=== PATIENT | male | born 1935 | race Caucasian/White ===

== ENCOUNTER → 2017-03-15 | Outpatient (CLI) | payer MEDICARE ==
[~2017-03-15] MED LIST: ADVAIR 250-501 EAC1 INH; ASPIRIN81 MG PO; CARTIA XT120 MG PO; FERRO-TIME325 MG PO; LEXAPRO5 MG PO; LOPRESSOR PO; LOVENOX SUBQ; NORCO 5/325 TAB1 TAB PO; SPIRIVA18 MCG INH
--- NOTE | ~2017-03-15 | US136 ---
[facility] A Service of [facility] & [facility] RADIOLOGY TEXT RESULTS PATIENT: JAY GROSS LOCATION: CNIV : 33 UNIT #: [id number] AGE: [address]: CHADWICK MAURO MD SEX: M ORDER DR: [id number] [facility] [address] [place], [place] [address] [id number] O MR#: [id number] Acc #: [id number] NAME: JAY GROSS : 1935 SEX: M STUDY DATE/TIME: 03/15/2017 10:50 UNIT: CNIV ROOM: STUDY DESCRIPTION: U/L Ext Art Study Ltd Bil Attending Physician: Chadwick Mauro M.D. Referring Physician: Chadwick Mauro M.D. Ordering Physician: Chadwick Mauro M.D. Primary Care Physician: Chadwick Mauro M.D. MEDICAL IMAGING REPORT This report is preliminary unless electronic signature is present EXAM Bilateral ankle to brachial indices 03/15/2017 HISTORY Claudication bilaterally as well as numbness and tingling in both feet for 3 months. TECHNIQUE Sequential pressures were obtained through both lower extremities and pulse volume recordings were generated. FINDINGS The patient's ankle to brachial indices are markedly abnormal bilaterally measuring 0.52 at the dorsalis pedis artery on the right and 0.68 at the posterior tibial artery on the right. The ankle to brachial index at the posterior tibial artery on the left is 0.64 and at the dorsalis pedis artery on the left is 0.53. Toe to brachial indices are also markedly diminished at 0.25 on the right and 0.36 on the left. IMPRESSION 1. The patient's ankle to brachial indices are markedly diminished bilaterally. This is certainly indicative multiple levels of arterial disease and certainly would be within claudication range. Further evaluation with CT angiography of the abdomen and pelvis with bilateral lower extremity runoff is suggested. 2. Toe to brachial indices are also very diminished. It is unclear if this is related to inflow disease, small vessel disease or a combination of both. Dictated by... Anne Billingsley M.D. [facility] A Service of [facility] & [facility] RADIOLOGY TEXT RESULTS PATIENT: JAY GROSS LOCATION: CNIV : 33 UNIT #: [id number] AGE: [address]: CHADWICK MAURO MD SEX: M ORDER DR: THIS IS AN ELECTRONICALLY VERIFIED REPORT Anne Billingsley M.D. at 03/16/2017 10:37 AM SYBIL/lauro TD: 03/15/2017 18:51 JOB #: [id number] MEDICAL IMAGING REPORT Page 1 of 1 COPY
== END | disposition home or self-care (01) ==
LOC: CNIV 10:39
DX: I73.9 Peripheral vascular disease, unspecified (principal)
CPT/HCPCS: 93922